=== PATIENT | female | born 1990 | race Caucasian/White ===

== ENCOUNTER 2021-07-25 20:53 | Inpatient (IN) ==
[2021-07-25] MEDS ORDERED: MIDAZOLAM 10 MG/2 ML VIAL ONE (22:01)
[2021-07-25 22:09] LABS: Basophils % 0.4 % (0.0-0.8); Eosinophils # 0.1 10*3/uL (0.0-0.87); Eosinophils % 1.5 % (0.00-10.9); Hemoglobin 12.7 GM/DL (12.0-16.0); Immature Granulocytes % 0.8 %; Immature Granulocytes Absolute 0.07 #; Lymphocytes # 1.5 10*3/uL (1.4-4.0); Lymphocytes % 17.4 % (21.3-54.2); Mean Corpuscular HGB Conc 32.6 GM/DL (32-36); Mean Corpuscular Volume 93.1 FL (87-102); Mean Platelet Volume 10.6 FL (9.6-12.0); Neutrophils % 72.9 % (38.7-73.9); Platelet Count 433 T/CUMM (130-400); Red Blood Count 4.19 MC/CUMM (3.8-5.5); Red Cell Distribution Width 12.3 % (9.3-17.3); White Blood Count 8.4 T/CUMM (4-12)
[2021-07-25] MEDS ORDERED: SODIUM CHLORIDE 0.9% 500 ML IV STA (22:23)
[2021-07-25 22:24] LABS: Alanine Aminotransferase 13 U/L (13-56); Albumin 4.2 G/DL (3.4-5.0); Alkaline Phosphatase 55 U/L (45-117); Aspartate Amino Transferase 8 U/L (0-37); Bilirubin,Total < 0.39 MG/DL (0.20-1.00); Blood Urea Nitrogen 13 MG/DL (7-18); Calcium 8.9 MG/DL (8.5-10.1); Carbon Dioxide 18 MMOL/L (21-32); Estimated Glom Filtration Rate 77 ML/MIN; Glucose 153 MG/DL (74-106); Osmolality,Calculated 279.5 MOS/KG (273-304); Potassium 3.3 MMOL/L (3.5-5.1); Sodium 139 MMOL/L (136-145); Total Protein 7.9 G/DL (6.4-8.2)
[2021-07-25 22:26] LABS: Bacteria,Urine Occasional /HPF (Few); Bilirubin,Urine Negative (Negative); Blood, Urine Moderate mg/dL (Negative); Glucose,Urine (UA) Negative (Negative); Hyaline Casts,Urine 12 /LPF (0-3); Ketones,Urine 5 mg/dL (Negative); Mucus,Urine Occasional /LPF (Occasional); Nitrite,Urine Negative (Negative); Protein,Urine 100 MG/DL; Squamous Epithelial Cell,Urine Occasional /HPF (0-10); Urine Appearance Slightly Hazy (Clear); Urine Color Yellow (Yellow); Urine Specific Gravity 1.019 (1.001-1.035); Urine Urobilinogen < 2.0 EU/DL (0.2-1.0)
[2021-07-25] MEDS ORDERED: cefTRIAXone 1,000 MG in SODIUM CHLORIDE 0.9% 100 ML IV STA (22:32)
[2021-07-25 22:38] LABS: Barbiturates Screen,Urine Negative (Negative); Benzodiazepines Screen,Urine Negative (Negative); Cannabinoid Screen,Urine Negative (Negative); Opiate Screen,Urine Positive (Negative); Phencyclidine Screen,Urine Negative (Negative)
[2021-07-25 22:40] LABS: Acetaminophen < 2.0 UG/ML (10-30); Phenytoin (Dilantin) 0.5 UG/ML (10-20)
[2021-07-25] MEDS ORDERED: LORazepam 2 MG/1 ML VIAL ONE (22:43)
[2021-07-25] MEDS ORDERED: LORazepam 2 MG/1 ML VIAL IV STA (23:11)
[2021-07-25] MEDS ORDERED: hydrALAZINE 20 MG/1 ML VIAL IV PRN (23:55)
[2021-07-25] MEDS ORDERED: GLUCAGON 1 MG VIAL IM PRN (23:55)
[2021-07-25] MEDS ORDERED: DEXTROSE 50% 25 GM/50 ML SYRINGE IV PRN (23:55)
[2021-07-25] MEDS ORDERED: diphenhydrAMINE CAP 25 MG CAPSULE PO PRN (23:55)
[2021-07-25] MEDS ORDERED: guaiFENesin/DM ER 600-30 MG TABLET PO PRN (23:55)
[2021-07-25] MEDS ORDERED: ZALEPLON 5 MG CAPSULE PO PRN (23:55)
[2021-07-25] MEDS ORDERED: ONDANSETRON 4 MG/2 ML VIAL IV PRN (23:55)
[2021-07-26] MEDS ORDERED: LORazepam 2 MG/1 ML VIAL IV PRN (00:20)
[2021-07-26] MEDS: DEXTROSE 5% NACL 0.9% 1,000 ML IV SCH ×4 (01:20→22:44)
[2021-07-26 06:44] LABS: Basophils % 0.2 % (0.0-0.8); Eosinophils # 0.1 10*3/uL (0.0-0.87); Hemoglobin 12.3 GM/DL (12.0-16.0); Immature Granulocytes % 0.4 %; Immature Granulocytes Absolute 0.04 #; Lymphocytes % 17.8 % (21.3-54.2); Mean Corpuscular HGB Conc 33.2 GM/DL (32-36); Mean Corpuscular Volume 91.6 FL (87-102); Mean Platelet Volume 10.5 FL (9.6-12.0); Monocytes % 9.7 % (1.7-12.7); Neutrophils % 70.9 % (38.7-73.9); Platelet Count 378 T/CUMM (130-400); Red Blood Count 4.04 MC/CUMM (3.8-5.5); Red Cell Distribution Width 12.5 % (9.3-17.3); White Blood Count 11.4 T/CUMM (4-12)
[2021-07-26] MEDS ORDERED: cefTRIAXone 1,000 MG in SODIUM CHLORIDE 0.9% 100 ML IV SCH (07:00)
[2021-07-26 07:07] LABS: Alanine Aminotransferase 11 U/L (13-56); Albumin 3.4 G/DL (3.4-5.0); Alkaline Phosphatase 46 U/L (45-117); Aspartate Amino Transferase 8 U/L (0-37); Bilirubin,Total < 0.39 MG/DL (0.20-1.00); Blood Urea Nitrogen 8 MG/DL (7-18); Calcium 8.1 MG/DL (8.5-10.1); Carbon Dioxide 23 MMOL/L (21-32); Estimated Glom Filtration Rate 126 ML/MIN; Glucose 133 MG/DL (74-106); Osmolality,Calculated 278.4 MOS/KG (273-304); Potassium 3.1 MMOL/L (3.5-5.1); Sodium 140 MMOL/L (136-145); Total Protein 6.5 G/DL (6.4-8.2)
[2021-07-26] MEDS: PANTOPRAZOLE 40 MG TABLET PO SCH (08:58)
[2021-07-26] MEDS: POTASSIUM CHLORIDE 20 MEQ TABLET PO SCH (08:58)
[2021-07-26] MEDS: BISACODYL 5 MG TABLET PO SCH (08:58)
[2021-07-26] MEDS: HALOPERIDOL 5 MG TABLET PO SCH ×2 (11:17→22:38)
[2021-07-26] MEDS: BENZTROPINE 1 MG TABLET PO SCH ×2 (11:17→22:38)
[2021-07-26] MEDS: cefTRIAXone 1,000 MG in SODIUM CHLORIDE 0.9% 100 ML IV SCH (15:16)
[2021-07-26] MEDS: MELOXICAM 7.5 MG TABLET PO PRN (19:05)
[2021-07-26] MEDS: ACETAMINOPHEN 325 MG TABLET PO PRN (20:27)
[2021-07-26] MEDS: NICOTINE 21 MG/24 HR PATCH TRANSDERM PRN (23:39)
[2021-07-27] MEDS: ACETAMINOPHEN 325 MG TABLET PO PRN ×3 (01:38→14:06)
[2021-07-27 07:24] LABS: Basophils % 0.6 % (0.0-0.8); Eosinophils # 0.2 10*3/uL (0.0-0.87); Eosinophils % 3.1 % (0.00-10.9); Hematocrit 41.8 VOL% (35.7-47.0); Hemoglobin 13.7 GM/DL (12.0-16.0); Immature Granulocytes % 0.3 %; Immature Granulocytes Absolute 0.02 #; Mean Corpuscular HGB Conc 32.8 GM/DL (32-36); Mean Corpuscular Volume 93.7 FL (87-102); Monocytes % 7.1 % (1.7-12.7); Neutrophils % 59.9 % (38.7-73.9); Platelet Count 418 T/CUMM (130-400); Red Blood Count 4.46 MC/CUMM (3.8-5.5); Red Cell Distribution Width 12.4 % (9.3-17.3); White Blood Count 6.8 T/CUMM (4-12)
[2021-07-27 07:47] LABS: Calcium 9.1 MG/DL (8.5-10.1); Osmolality,Calculated 275.4 MOS/KG (273-304); Potassium 3.2 MMOL/L (3.5-5.1)
[2021-07-27 08:13] LABS: Platelet Estimate Normal
[2021-07-27 08:14] LABS: Anisocytosis Slight; Macrocytosis Slight
[2021-07-27] MEDS: DEXTROSE 5% NACL 0.9% 1,000 ML IV SCH ×3 (08:56→23:18)
[2021-07-27] MEDS: PANTOPRAZOLE 40 MG TABLET PO SCH (08:57)
[2021-07-27] MEDS: HALOPERIDOL 5 MG TABLET PO SCH ×2 (08:57→20:16)
[2021-07-27] MEDS: BISACODYL 5 MG TABLET PO SCH (08:57)
[2021-07-27] MEDS: HEPARIN 5,000 UNIT/1 ML VIAL SUBCUT SCH ×2 (08:57→20:16)
[2021-07-27] MEDS: BENZTROPINE 1 MG TABLET PO SCH ×2 (08:57→20:16)
[2021-07-27] MEDS: POTASSIUM CHLORIDE 20 MEQ TABLET PO SCH (08:58)
[2021-07-27] MEDS: cefTRIAXone 1,000 MG in SODIUM CHLORIDE 0.9% 100 ML IV SCH (11:11)
[2021-07-27] MEDS ORDERED: POTASSIUM CHLORIDE 20 MEQ TABLET PO ONE (15:00)
[2021-07-27] MEDS: CYCLOBENZAPRINE 10 MG TABLET PO PRN (20:15)
[2021-07-27] MEDS: NICOTINE 21 MG/24 HR PATCH TRANSDERM PRN (23:17)
[2021-07-28] MEDS: MELOXICAM 7.5 MG TABLET PO PRN (01:02)
[2021-07-28 03:10] LABS: Basophils % 0.4 % (0.0-0.8); Eosinophils # 0.2 10*3/uL (0.0-0.87); Eosinophils % 1.6 % (0.00-10.9); Hemoglobin 13.8 GM/DL (12.0-16.0); Immature Granulocytes % 0.1 %; Immature Granulocytes Absolute 0.01 #; Lymphocytes % 22.1 % (21.3-54.2); Mean Corpuscular HGB Conc 32.9 GM/DL (32-36); Mean Corpuscular Volume 92.7 FL (87-102); Mean Platelet Volume 10.6 FL (9.6-12.0); Monocytes % 6.2 % (1.7-12.7); Neutrophils % 69.6 % (38.7-73.9); Platelet Count 442 T/CUMM (130-400); Red Blood Count 4.53 MC/CUMM (3.8-5.5); Red Cell Distribution Width 12.6 % (9.3-17.3); White Blood Count 9.2 T/CUMM (4-12)
[2021-07-28 03:25] LABS: Calcium 9.3 MG/DL (8.5-10.1); Osmolality,Calculated 277.4 MOS/KG (273-304); Potassium 3.1 MMOL/L (3.5-5.1)
[2021-07-28] MEDS: CYCLOBENZAPRINE 10 MG TABLET PO PRN (03:39)
[2021-07-28] MEDS ORDERED: POTASSIUM CHLORIDE 20 MEQ TABLET PO ONE ×2 (07:59→11:08)
[2021-07-28] MEDS: BISACODYL 5 MG TABLET PO SCH (09:05)
[2021-07-28] MEDS: ACETAMINOPHEN 325 MG TABLET PO PRN (09:05)
[2021-07-28] MEDS: POTASSIUM CHLORIDE 20 MEQ TABLET PO SCH (09:06)
[2021-07-28] MEDS: PANTOPRAZOLE 40 MG TABLET PO SCH (09:06)
[2021-07-28] MEDS: HEPARIN 5,000 UNIT/1 ML VIAL SUBCUT SCH (09:06)
[2021-07-28] MEDS: BENZTROPINE 1 MG TABLET PO SCH (09:06)
[2021-07-28] MEDS: HALOPERIDOL 5 MG TABLET PO SCH (09:06)
[2021-07-28] MEDS: cefTRIAXone 1,000 MG in SODIUM CHLORIDE 0.9% 100 ML IV SCH (11:17)
[2021-07-28] MEDS: DEXTROSE 5% NACL 0.9% 1,000 ML IV SCH ×2 (11:18→15:58)
[2021-07-28 13:04] VITALS: BP 106/47
[2021-07-28] MEDS ORDERED: IBUPROFEN 200 MG TABLET PO ONE (13:30)
== END 2021-07-28 16:06 | disposition home or self-care (01) | DRG 101 ==
LOC: N.ED 20:53 → N.EDINP 07-26 → N.3E 07-26 01:25
PROVIDERS: ADMIT Internal Medicine; ATTEND Internal Medicine